=== PATIENT | male | born 1950 | race Caucasian/White ===

== ENCOUNTER 2022-02-24 09:28 | Outpatient (CLI) | payer MEDICARE, SELFPAY ==
--- NOTE | ~2022-02-24 | XR_ITS ---
XR lumbar spine 2-3V DATE: 02/24/2022 09:55 INDICATION: Low back pain. No injury. TECHNIQUE: Standing AP and standing lateral extension and flexion views COMPARISON: None FINDINGS: There is approximately 35 degrees rotatory levoscoliosis of the lower thoracic and lumbar s pine measured from L1 to L4. There is severe degenerative disc disease throughout the lumbar and lumbosacral spine. No fracture or bone destruction is evident. The lumbar pedicles and included lower thoracic pedicles appear intact. There is degenerative change at the apophyseal joints with associated grade 1 anterolisthesis at L4-5 . No instability on flexion or extension is noted. The sacroiliac joints are intact. IMPRESSION: 35 degrees rotatory levoscoliosis Severe degenerative disc disease throughout the lumbar and lumbosacral spine Grade 1 anterolisthesis at L4-5 due to degenerative change at the apophyseal joints Reviewed, dictated and finalized at location B. IMPRESSION: 35 degrees rotatory levoscoliosis Severe degenerative disc disease throughout the lumbar and lumbosacral spine Grade 1 anterolisthesis at L4-5 due to degenerative change at the apophyseal rosie ints
== END 2022-02-24 09:29 | disposition home or self-care (01) ==
PROVIDERS: PCP Internal Medicine; Visit Provider Internal Medicine
DX: M54.50 Low back pain, unspecified (principal); M48.00 Spinal stenosis, site unspecified; G89.29 Other chronic pain; M51.36 Other intervertebral disc degeneration, lumbar region
CPT/HCPCS: 72100

== ENCOUNTER 2022-03-21 09:30 | Outpatient (CLI) | payer MEDICARE, SELFPAY ==
[2022-03-21 10:19] LABS: Basophils Absolute Auto 0.1 K/mm3 (0.0-0.1); Basophils Percent Auto 1.3 % (0.2-1.2); Eosinophils Absolute Auto 0.2 K/mm3 (0-0.3); Eosinophils Percent Auto 3.8 % (0-4.4); Hematocrit 51.6 % (42.0-52.0); Hemoglobin 16.6 g/dL (14.0-18.0); Immature Granulocyte Absolute 0.01 K/mm3 (0.00-0.031); Immature Granulocyte Percent A 0.2 % (0-0.5); Lymphocytes Absolute Auto 1.27 K/mm3 (0.9-3.2); Mean Corpuscular HGB Conc 32.2 g/dl (32-36); Mean Corpuscular Hemoglobin 30.4 pg (26-34); Mean Corpuscular Volume 94.5 fl (80-100); Monocytes Absolute Auto 0.6 K/mm3 (0.1-0.6); Monocytes Percent Auto 9.1 % (2.6-8.5); Neutrophils Absolute Auto 4.2 K/mm3 (1.3-6.7); Neutrophils Percent Auto 65.6 % (45.5-73.1); Platelet Count Result 202 k/mm3 (150-375); Red Blood Count 5.46 M/mm3 (4.6-6.20); Red Cell Distribution Width 13.1 % (11.5-14.5); White Blood Count 6.4 K/mm3 (4.5-10.0)
[2022-03-21 10:31] LABS: Alanine Aminotransferase 19 U/L (6-50); Albumin Level 4.1 g/dL (3.5-5.1); Alkaline Phosphatase 73 U/L (38-126); Anion Gap 7 mmol/L (8-16); Aspartate Amino Transferase 33 U/L (17-59); Bilirubin,Total 0.8 mg/dL (0.2-1.3); Blood Urea Nitrogen 20 mg/dL (9-20); Calcium 9.1 mg/dL (8.4-10.2); Carbon Dioxide 27 mmol/L (22-30); Chloride 103 mmol/L (98-107); Cholesterol 156 mg/dL (0-200); Estimated Glomerular Filt Rate > 60; Glucose 82 mg/dL (65-110); HDL Direct 62 mg/dL; Potassium 4.9 mmol/L (3.4-5.0); Sodium 137 mmol/L (137-145); Triglycerides 69 mg/dL (<150)
[2022-03-21 10:43] LABS: LDL Cholesterol Direct 63 mg/dL
[2022-03-21 10:48] LABS: Appearance Urine Clear (Clear); Bilirubin Urine Negative (Negative); Blood Urine Negative (Negative); Color Urine Yellow (Yellow); Glucose Urine UA Negative (Negative); Ketones Urine Negative (Negative); Leukocyte Esterase Ur Trace LEU/UL (Negative); Nitrate Urine Negative (Negative); Protein Urine Negative (Negative); Urobilinogen Urine 0.2 mg/dL (<2.0)
[2022-03-21 11:03] LABS: Prostate Specific Antigen 1.5 ng/mL (< OR = 4.0)
[2022-03-21 11:08] LABS: Vitamin D 25 Hydroxy 63.3 ng/mL
[2022-03-21 11:31] LABS: Hemoglobin A1C 5.3 % (<5.7)
[2022-03-21 11:35] LABS: Add Urine Microscopic? YES
[2022-03-21 11:36] LABS: Bacteria Urine Trace /hpf; Mucus Urine Few /lpf; Squamous Epithelial Cell Urine Rare /hpf (Few)
[2022-03-21 11:43] LABS: Folic Acid > 20.0 ng/mL (2.76->20)
== END 2022-03-21 09:31 | disposition home or self-care (01) ==
PROVIDERS: PCP Internal Medicine; Visit Provider Internal Medicine
DX: Z79.899 Other long term (current) drug therapy (principal); E55.9 Vitamin D deficiency, unspecified; Z13.29 Encounter for screening for other suspected endocrine disorder; E78.2 Mixed hyperlipidemia; Z13.1 Encounter for screening for diabetes mellitus; E53.8 Deficiency of other specified B group vitamins; Z12.5 Encounter for screening for malignant neoplasm of prostate
CPT/HCPCS: 36415; 80053; 80061; 81001; 82306; 82607; 82746; 83036; 84153; 84439; 84443; 85025; G0103

== ENCOUNTER 2022-03-31 00:46 | Day surgery (SDC) | payer MEDICARE, SELFPAY ==
[2022-03-16 14:15] VITALS: BMI 24.3
--- NOTE | 2022-03-30 09:53 | WPDANESEPPF ---
Anes - Initial Pre Proc Eval Procedure: Operation Date: 03/31/22 10:00 Proposed Procedures p Screening Colonoscopy - Twan Garcia MD Date/Time: 03/30/22 09:53 Surgeon: Twan Garcia MD Pre Op Diagnosis: neoplasm screening Patient Data Age: 71 Gender: M Height: 1.78 m Weight: 77 kg Allergies Allergy/AdvReac Type Severity Reaction Status Date / Time Sulfa (Sulfonamide Allergy Intermediate Rash Verified 03/31/22 08:45 Antibiotics) [id number] Reductase AdvReac Intermediate Muscle Pain Verified 03/31/22 08:45 Inhibitor apple skin AdvReac Mild Other Uncoded 03/31/22 08:45 Home Medications Medication Instructions Recorded Confirmed Type acetaminophen 500 mg capsule 500 mg PO Q6H PRN Pain 02/13/22 03/16/22 History albuterol sulfate 90 mcg/actuation 1 puff inhalation Q4H PRN asthma 02/13/22 03/16/22 History aerosol inhaler (ProAir HFA) cholecalciferol (vitamin D3) 25 25 mcg PO DAILY 02/13/22 03/16/22 History mcg (1,000 unit) capsule diclofenac sodium 1 % topical gel 4 g topical QID 02/13/22 03/16/22 History (Arthritis Pain (diclofenac)) diphenhydramine 25 1 tablet PO QHS PRN Pain 02/13/22 03/16/22 History mg-acetaminophen 500 mg tablet (Tylenol PM Extra Strength) duloxetine 30 mg capsule,delayed 30 mg PO DAILY 02/13/22 03/16/22 History release evolocumab 140 mg/mL subcutaneous 140 mg subcut ONCE 02/13/22 03/16/22 History pen injector (Repatha SureClick) fexofenadine 180 mg tablet 180 mg PO DAILY 02/13/22 03/16/22 History folic acid 400 mcg tablet 0.4 mg PO DAILY 02/13/22 03/16/22 History ibuprofen 200 mg tablet 200 mg PO Q6H PRN Pain 02/13/22 03/16/22 History lactobacillus combination no.9 4 4,000 mmu cells PO DAILY 02/13/22 03/16/22 History billion cell capsule (Adult 50 Plus Probiotic) lisinopril 10 mg tablet 10 mg PO DAILY 02/13/22 03/16/22 History mecobalamin (vitamin B12) 1,000 1,000 mcg PO DAILY 02/13/22 03/16/22 History mcg chewable tablet melatonin 3 mg capsule 3 mg PO QHS 02/13/22 03/16/22 History omeprazole 20 mg capsule,delayed 20 mg PO DAILY 02/13/22 03/16/22 History release psyllium husk 3.4 gram/5.4 gram 1 tsp PO ONCE 02/13/22 03/16/22 History oral powder (Metamucil) sildenafil (pulm.hypertension) 20 20 mg PO TID 02/13/22 03/16/22 History mg tablet tolterodine 2 mg capsule,extended 2 mg PO DAILY 02/13/22 03/16/22 History release 24 hr vitamin B complex 1 tablet PO DAILY 02/13/22 03/16/22 History peg 3350-electrolytes 236 240 ml PO Q10M #4,000 mL 02/17/22 Rx gram-22.74 gram-6.74 gram-5.86 gram solution (Golytely) dicyclomine 10 mg capsule 10 mg PO DAILY PRN cramping 03/16/22 03/16/22 History Patient hx anesthesia problems: none Family hx anesthesia problems: none Results Review: All pre-operative results and documents have been reviewed as part of the pre-operative evaluation. [facility] Past Medical History Medical History (Updated 02/13/22 @ 11:45 by [employer] [facility] [address]) Benign essential hypertension BMI 24.0-24.9, adult Chronic low back pain CKD (chronic kidney disease) Colon cancer screening Encounter to establish care Erectile dysfunction History of left foot drop Hx of Clostridium difficile infection Hx of renal calculi Inclusion cyst Macular pucker, left eye Mixed hyperlipidemia On usp drug therapy Pre-diabetes Prostate cancer screening Statin intolerance Stenosis of intervertebral foramen Transient global amnesia Surgical History Surgical History (Updated 02/13/22 @ 11:04 by Aurora [employer] [facility]) History of carpal tunnel release History of tonsillectomy and adenoidectomy Hx of cardiac cath Hx of cataract surgery Social History Social History Smoking status: Never smoker Alcohol intake: current Drinks per week: 3 Substance use type: does not use Living arrangements: with family Spiritual care concerns: No Anes - Eval Final PreProcedure Day of Procedure
--- NOTE | 2022-03-31 06:56 | PM.HPGS ---
History of Present Illness History of Present Illness Consent: Risks, benefits, and alternatives have been discussed and questions answered. Patient agrees to proceed with procedure. Chief complaint: neoplasm screening Narrative: Bubba Agudelo is a 71 year old male Referred for colon cancer screening. Review of Systems Review of Systems: All systems reviewed & are unremarkable except as noted in HPI and below PMFSH Past Medical History Medical History Benign essential hypertension BMI 24.0-24.9, adult Chronic low back pain CKD (chronic kidney disease) Colon cancer screening Encounter to establish care Erectile dysfunction History of left foot drop Hx of Clostridium difficile infection Hx of renal calculi Inclusion cyst Macular pucker, left eye Mixed hyperlipidemia On pen[facility]iary drug therapy Pre-diabetes Prostate cancer screening Statin intolerance Stenosis of intervertebral foramen Transient global amnesia Surgical History Surgical History History of carpal tunnel release History of tonsillectomy and adenoidectomy Hx of cardiac cath Hx of cataract surgery Social History Social History Smoking status: Never smoker Alcohol intake: current Drinks per week: 3 Substance use type: does not use Living arrangements: with family Spiritual care concerns: No Meds Home Medications and Allergies Home Medications Medication Instructions Recorded Confirmed Type acetaminophen 500 mg capsule 500 mg PO Q6H PRN Pain 02/13/22 03/16/22 History albuterol sulfate 90 mcg/actuation 1 puff inhalation Q4H PRN asthma 02/13/22 03/16/22 History aerosol inhaler (ProAir HFA) cholecalciferol (vitamin D3) 25 25 mcg PO DAILY 02/13/22 03/16/22 History mcg (1,000 unit) capsule diclofenac sodium 1 % topical gel 4 g topical QID 02/13/22 03/16/22 History (Arthritis Pain (diclofenac)) diphenhydramine 25 1 tablet PO QHS PRN Pain 02/13/22 03/16/22 History mg-acetaminophen 500 mg tablet (Tylenol PM Extra Strength) duloxetine 30 mg capsule,delayed 30 mg PO DAILY 02/13/22 03/16/22 History release evolocumab 140 mg/mL subcutaneous 140 mg subcut ONCE 02/13/22 03/16/22 History pen injector (Olive David) fexofenadine 180 mg tablet 180 mg PO DAILY 02/13/22 03/16/22 History folic acid 400 mcg tablet 0.4 mg PO DAILY 02/13/22 03/16/22 History ibuprofen 200 mg tablet 200 mg PO Q6H PRN Pain 02/13/22 03/16/22 History lactobacillus combination no.9 4 4,000 mmu cells PO DAILY 02/13/22 03/16/22 History billion cell capsule (Adult 50 Plus Probiotic) lisinopril 10 mg tablet 10 mg PO DAILY 02/13/22 03/16/22 History mecobalamin (vitamin B12) 1,000 1,000 mcg PO DAILY 02/13/22 03/16/22 History mcg chewable tablet melatonin 3 mg capsule 3 mg PO QHS 02/13/22 03/16/22 History omeprazole 20 mg capsule,delayed 20 mg PO DAILY 02/13/22 03/16/22 History release psyllium husk 3.4 gram/5.4 gram 1 tsp PO ONCE 02/13/22 03/16/22 History oral powder (Metamucil) sildenafil (pulm.hypertension) 20 20 mg PO TID 02/13/22 03/16/22 History mg tablet tolterodine 2 mg capsule,extended 2 mg PO DAILY 02/13/22 03/16/22 History release 24 hr vitamin B complex 1 tablet PO DAILY 02/13/22 03/16/22 History peg 3350-electrolytes 236 240 ml PO Q10M #4,000 mL 02/17/22 Rx gram-22.74 gram-6.74 gram-5.86 gram solution (Golytely) dicyclomine 10 mg capsule 10 mg PO DAILY PRN cramping 03/16/22 03/16/22 History Allergies Allergy/AdvReac Type Severity Reaction Status Date / Time Sulfa (Sulfonamide Allergy Intermediate Rash Verified 03/31/22 08:45 Antibiotics) [id number] Reductase AdvReac Intermediate Muscle Pain Verified 03/31/22 08:45 Inhibitor apple skin AdvReac Mild Other Uncoded 03/31/22 08:45 Exam Const: General: alert Orientation
[2022-03-31 08:47] VITALS: BP 113/77; PULSE 77; RESP 20; TEMP 36.6; O2SAT 99
[2022-03-31] MEDS: LACTATED RINGERS 1,000 ML 150 ML IV CONT (08:59)
[2022-03-31] MEDS: SIMETHICONE ORAL SUSPENSION 20 MG/0.3 ML 30 ML BOTTLE 0.6 ML IRRIGATION (10:10)
[2022-03-31 10:19] VITALS: BP 101/60; PULSE 60; RESP 14; O2SAT 100
[2022-03-31 10:29] VITALS: BP 108/60; PULSE 60; RESP 22; O2SAT 100
[2022-03-31 10:39] VITALS: BP 117/69; PULSE 60; RESP 22; O2SAT 99
== END 2022-03-31 10:49 | disposition home or self-care (01) ==
PROVIDERS: PCP Internal Medicine; Visit Provider Internal Medicine Gastroenterology
PROC: 0DJD8ZZ Inspection of Lower Intestinal Tract, Via Natural or Artificial Opening Endoscopic (ICD-10-PCS; CPT 45378; principal; 2022-03-31 10:00)
DX: Z12.11 Encounter for screening for malignant neoplasm of colon (principal); R73.03 Prediabetes; M48.00 Spinal stenosis, site unspecified; I12.9 Hypertensive chronic kidney disease with stage 1 through stage 4 chronic kidney disease, or unspecified chronic kidney disease; N18.9 Chronic kidney disease, unspecified; Z79.51 Long term (current) use of inhaled steroids
CPT/HCPCS: G0121; J2704; J7120

== ENCOUNTER 2022-04-11 09:10 | Outpatient (CLI) | payer MEDICARE, SELFPAY ==
--- NOTE | ~2022-04-11 | XR_ITS ---
EXAMINATION: XR knee RT 3V DATE: 04/11/2022 09:40 INDICATION: Right knee pain TECHNIQUE: Three views of the right knee were obtained. COMPARISON: None. FINDINGS: Alignment is normal. No fracture or osteochondral lesion. There is mild to moderate tricomp artmental osteoarthritis. No joint effusion/synovitis. Calcified atherosclerosis is noted. IMPRESSION: 1. Osteoarthritis without acute osseous abnormality. Reviewed, dictated and finalized at location A.
--- NOTE | ~2022-04-11 | XR_ITS ---
XR knee LT 3V 04/11/2022 09:40 Indication: Knee pain Procedure: 3 views left knee Comparison: No prior studies for comparison. Findings: There is moderate tricompartment osteoarthritis. No fracture or traumatic malalignment. The re is chondrocalcinosis. No significant joint effusion. There are vascular calcifications. Impression: 1: Moderate tricompartment osteoarthritis of the left knee. Reviewed, dictated and finalized at location B. Impression: 1: Moderate tricompartment osteoarthritis of the left knee.
== END 2022-04-11 09:11 | disposition home or self-care (01) ==
PROVIDERS: PCP Internal Medicine; Visit Provider Internal Medicine
DX: M17.0 Bilateral primary osteoarthritis of knee (principal)
CPT/HCPCS: 73562

== ENCOUNTER 2022-06-13 07:00 | Outpatient (NON) | payer MEDICARE, SELFPAY | END 2022-06-13 07:01 | disposition home or self-care (01) | LOC: ANHLAB 06-14 11:39 | PROVIDERS: PCP Internal Medicine; Visit Provider Nurse Practitioner | DX: L72.0 Epidermal cyst (principal) | CPT/HCPCS: 88304 ==

== ENCOUNTER → 2023-05-11 10:13 | Outpatient (CLI) | payer MEDICARE, SELFPAY ==
--- NOTE | ~2023-05-11 | MR_ITS ---
EXAMINATION: MR lumbar spine wo con DATE: 05/11/2023 10:42 INDICATION: Low back pain. Radiculopathy. TECHNIQUE: Magnetic resonance imaging (MRI) of the lumbar spine was performed without intravenous con trast. Sequences included sagittal T2-weighted FSE, sagittal T2-weighted FS FSE, sagittal T1-weighted FSE, and axial T2-weighted FSE. COMPARISON: Lumbar spine radiographs 02/24/2022 FINDINGS: There is 32 degrees levoscoliosis of lumbar spine. There is 3 mm anterolisthesis of L4 on L 5. The body heights are normal. There is moderately decreased disc height at T12-L1, severely decreas ed disc height at L1-L2, moderately decreased disc height at L2-L3, and severely decreased disc heigh t at L3-L4, L4-L5, and L5-S1. The distal spinal cord signal intensity is normal. The conus medullaris is at L1-L2. The following disc levels are specifically discussed: T12-L1: The disc is bulging and has an annular fissure. There is mild right facet joint osteoarthriti s. There is mild bilateral neural foraminal stenosis. There is mild central canal stenosis. L1-L2: The disc is bulging and has an annular fissure. There is mild right facet joint osteoarthritis . There is moderate right and mild left neural foraminal stenosis. There is mild central canal stenos is. L2-L3: The disc is bulging and has an annular fissure. There is mild bilateral facet joint osteoarthr itis. There is mild bilateral neural foraminal stenosis. There is mild central canal stenosis. L3-L4: The disc is bulging and has an annular fissure. There is severe bilateral facet joint osteoart hritis. There is moderate right and mild left neural foraminal stenosis. There is mild central canal stenosis. L4-L5: The disc is bulging and has an annular fissure. There is severe bilateral facet joint osteoart hritis. There is mild right and moderate left neural foraminal stenosis. There is mild central canal stenosis. L5-S1: The disc is bulging and has an annular fissure. There is severe bilateral facet joint osteoart hritis. There is mild bilateral neural foraminal stenosis. There is mild central canal stenosis. IMPRESSION: 1. Severe lumbar spondylosis. 2. Lumbar levoscoliosis. Reviewed, dictated and finalized at location E.
== END ==
PROVIDERS: PCP Pain Medicine Pain Medicine; Visit Provider Nurse Practitioner Acute Care
DX: M51.16 Intervertebral disc disorders with radiculopathy, lumbar region (principal); M43.06 Spondylolysis, lumbar region; M41.86 Other forms of scoliosis, lumbar region
CPT/HCPCS: 72148

== ENCOUNTER 2024-01-03 13:02 | Outpatient (CLI) | payer MEDICARE, SELFPAY ==
--- NOTE | ~2024-01-03 | XR_ITS ---
EXAMINATION: XR knee RT 3V DATE: 01/03/2024 13:20 INDICATION: Osteoarthritis at the right knee TECHNIQUE: Standing AP, sunrise, and flexed lateral views of the right knee were obtained COMPARISON: 04/11/2022 FINDINGS: Alignment is normal. No fracture. Chondrocalcinosis at the medial and lateral compartments of the ri ght knee. Tricompartmental osteoarthritis at the right knee with small marginal osteophytes in all 3 compartments. There is mild joint space narrowing the medial compartment and mild to moderate joint s pace narrowing in the patellofemoral compartment bladder better appreciated on the lateral projection . Small right knee joint effusion. Soft tissues are unremarkable. IMPRESSION: 1. Chondrocalcinosis and tricompartmental osteoarthritis the right knee, mild to moderate severity at the patellofemoral compartment and mild in the medial and lateral compartments. Reviewed, dictated and finalized at location A. IMPRESSION: 1. Chondrocalcinosis and tricompartmental osteoarthritis the right knee, mild t o moderate severity at the patellofemoral compartment and mild in the medial an d lateral compartments.
--- NOTE | ~2024-01-03 | XR_ITS ---
XR knee LT 3V 01/03/2024 13:20 Indication: Left knee pain Procedure: 3 views left knee Comparison: 04/11/2022 Findings: Moderate osteoarthritis of the left knee. Chondrocalcinosis. No fracture or traumatic malal ignment. No joint effusion. No foreign bodies. Impression: 1: Moderate osteoarthritis of the left knee with chondrocalcinosis. Reviewed, dictated and finalized at location B. Impression: 1: Moderate osteoarthritis of the left knee with chondrocalcinosis.
== END 2024-01-03 13:03 ==
PROVIDERS: Visit Provider Nurse Practitioner Family
DX: M17.0 Bilateral primary osteoarthritis of knee (principal)
CPT/HCPCS: 73562

== ENCOUNTER 2024-08-07 03:33 | Emergency (ER) | payer MEDICARE, SELFPAY ==
--- NOTE | ~2024-08-07 | CT_ITS ---
CT of the Abdomen and Pelvis: Indication: Abdominal pain Technique: 2.5 mm axial scans were obtained through the abdomen and pelvis following intravenous adm inistration of 100 cc of Omnipaque 350. Dose reduction technique was used on this scan by utilizing a utomated exposure control and iterative reconstruction technique. The dose-length product (DLP) was 4 00.83 mGy-cm. Findings: Scans through the lung bases are unremarkable. The liver, spleen, pancreas, gallbladder, adrenals and kidneys are within normal limits. There are mi ld atherosclerotic calcifications of the aorta. No lymphadenopathy. No bowel obstruction or bowel wall thickening. There is no evidence to suggest acute appendicitis. Images through the pelvis were performed. Urinary bladder unremarkable. No pelvic mass seen. Prostate gland mildly enlarged. No ascites. Impression: No significant abnormalities seen. Reviewed, dictated and finalized at [facility]. 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
[2024-08-07 03:39] VITALS: BP 143/98; PULSE 60; RESP 11; TEMP 36.4; O2SAT 100
[2024-08-07 03:55] LABS: Basophils Absolute Auto 0.1 K/mm3 (0.0-0.1); Basophils Percent Auto 1.4 % (0.2-1.2); Eosinophils Absolute Auto 0.3 K/mm3 (0-0.3); Eosinophils Percent Auto 5.3 % (0-4.4); Hematocrit 45.8 % (42.0-52.0); Hemoglobin 15.3 g/dL (14.0-18.0); Immature Granulocyte Absolute 0.02 K/mm3 (0.00-0.031); Immature Granulocyte Percent A 0.3 % (0-0.5); Lymphocytes Absolute Auto 1.86 K/mm3 (0.9-3.2); Lymphocytes Percent Auto 29.6 % (18.3-44.2); Mean Corpuscular HGB Conc 33.4 g/dl (32-36); Mean Corpuscular Hemoglobin 30.6 pg (26-34); Mean Corpuscular Volume 91.6 fl (80-100); Mean Platelet Volume 8.7 fl (7.4-10.4); Monocytes Absolute Auto 0.7 K/mm3 (0.1-0.6); Monocytes Percent Auto 10.7 % (2.6-8.5); Neutrophils Absolute Auto 3.3 K/mm3 (1.3-6.7); Neutrophils Percent Auto 52.7 % (45.5-73.1); Platelet Count Result 218 k/mm3 (150-375); Red Cell Distribution Width 12.3 % (11.5-14.5); White Blood Count 6.3 K/mm3 (4.5-10.0)
[2024-08-07 04:05] LABS: Add Urine Microscopic? NO; Appearance Urine Clear (Clear); Bilirubin Urine Negative (Negative); Blood Urine Negative (Negative); Color Urine Yellow (Yellow); Glucose Urine UA Negative (Negative); Ketones Urine Negative (Negative); Leukocyte Esterase Ur Negative LEU/UL (Negative); Nitrate Urine Negative (Negative); Protein Urine Negative (Negative); Specific Grav Ur 1.012 (1.001-1.035); Urobilinogen Urine 0.2 mg/dL (<2.0); pH Urine 7.5 (5.0-9.0)
[2024-08-07 04:08] LABS: Alanine Aminotransferase 44 U/L (6-50); Albumin Level 4.1 g/dL (3.5-5.1); Alkaline Phosphatase 85 U/L (38-126); Anion Gap 6 mmol/L (4-12); Aspartate Amino Transferase 41 U/L (17-59); Bilirubin,Total 0.8 mg/dL (0.2-1.3); Blood Urea Nitrogen 20 mg/dL (9-20); Calcium 9.1 mg/dL (8.4-10.2); Carbon Dioxide 29 mmol/L (22-30); Chloride 104 mmol/L (98-107); Estimated CRCL calculation 56 ml/min; Estimated Glomerular Filt Rate > 60; Glucose 96 mg/dL (65-110); Lipase 78 U/L (23-300); Magnesium 2.2 mg/dL (1.6-2.3); Potassium 3.8 mmol/L (3.4-5.0); Sodium 139 mmol/L (137-145)
[2024-08-07 04:32] LABS: Influenza A QL RT-PCR Negative (Negative); Influenza B QL RT-PCR Negative (Negative); RSV RNA, RT-PCR Negative (Negative); SARS-CoV-2 RNA PCR Negative (Negative)
--- NOTE | 2024-08-07 04:38 | ED.ABDPAIN ---
HPI - Abdominal Pain General Chief Complaint: Abdominal Pain Stated Complaint: abdominal pain Time Seen by Provider: 08/07/24 03:36 History of Present Illness HPI narrative: Patient is a 74-year-old male who presents to the emergency department this morning complaining of abdominal pain that has been ongoing for the past 3 months. Patient states that the pain is intermittent, sometimes worse than others but states that overnight he felt as though it became more sharp so he finally decided to come to the emergency department for further evaluation. Patient admits that he does have a history of IBS and has been following up with the primary care physician out of [facility]. Patient states that he had a colonoscopy done 2 years ago which was normal. States that the pain is cramping in nature. States that he usually has a bowel movement multiple times a day secondary to his history of IBS. Denies any nausea or vomiting. Denies any chest pain or shortness of breath. No additional symptoms or concerns at this time. Related Data Home Medications ?Medication ?Instructions ?Recorded ?Confirmed ?Last Taken ?Type acetaminophen 500 mg capsule 500 mg PO Q6H PRN Pain 02/13/22 04/26/23 Unknown History albuterol sulfate 90 mcg/actuation 1 puff inhalation Q4H PRN asthma 02/13/22 04/26/23 Unknown History aerosol inhaler (ProAir HFA) cholecalciferol (vitamin D3) 25 25 mcg PO DAILY 02/13/22 04/26/23 Unknown History mcg (1,000 unit) capsule diclofenac sodium 1 % topical gel 4 g topical QID 02/13/22 04/26/23 Unknown History (Arthritis Pain (diclofenac)) diphenhydramine 25 1 tablet PO QHS PRN Pain 02/13/22 04/26/23 Unknown History mg-acetaminophen 500 mg tablet (Tylenol PM Extra Strength) folic acid 400 mcg tablet 0.4 mg PO DAILY 02/13/22 04/26/23 Unknown History ibuprofen 200 mg tablet 200 mg PO Q6H PRN Pain 02/13/22 04/26/23 Unknown History lactobacillus combination no.9 4 4,000 mmu cells PO DAILY 02/13/22 04/26/23 Unknown History billion cell capsule (Adult 50 Plus Probiotic) mecobalamin (vitamin B12) 1,000 1,000 mcg PO DAILY 02/13/22 04/26/23 Unknown History mcg chewable tablet psyllium husk 3.4 gram/5.4 gram 1 tsp PO ONCE 02/13/22 04/26/23 Unknown History oral powder (Metamucil) vitamin B complex 1 tablet PO DAILY 02/13/22 04/26/23 Unknown History fexofenadine 180 mg tablet 180 mg PO DAILY PRN 04/07/22 04/26/23 Unknown History melatonin 3 mg capsule 3 mg PO QHS PRN 08/31/22 04/26/23 Unknown History Allergies Allergy/AdvReac Type Severity Reaction Status Date / Time Sulfa (Sulfonamide Allergy Intermediate Rash Verified 04/24/23 13:37 Antibiotics) [id number] Reductase AdvReac Intermediate Muscle Pain Verified 04/24/23 13:37 Inhibitor apple skin AdvReac Mild Other Uncoded 04/24/23 13:37 Review of Systems Review of Systems: All systems are reviewed and are negative unless stated otherwise in the HPI. [facility] Past Medical History Medical History Hearing loss IBS (irritable bowel syndrome) Encounter for routine adult health examination without abnormal findings Encounter for Medicare annual wellness exam BMI 25.0-25.9,adult Pre-diabetes History of left foot drop Macular pucker, left eye Inclusion cyst Benign essential hypertension Prostate cancer screening Colon cancer screening Hx of Clostridium difficile infection Transient global amnesia Erectile dysfunction CKD (chronic kidney disease) Statin intolerance Mixed hyperlipidemia Hx of renal calculi Chronic low back pain Stenosis of intervertebral foramen 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 Colindres Hx of cataract surgery Hx of cardiac cath History of tonsillectomy and adenoidectomy History of carpal tunnel release Family History Family History Other Depression Diabetes mellitus HLD (hyperlipidemia) Heart disease Hypertension Rheumatoid arthritis Social History Social History Smoking status: Never smoker Alcohol intake: current Drinks per week: 3 Substance use type: does not use Current Housing: Decline to Answer Concerned About Future Housing: Decline to Answer Difficulty Paying Gas/Electric Bills: Decline to Answer Difficulty Paying for Meds: Decline to Answer Currently Unemployed: Decline to Answer Education: Decline to Answer Difficulty w/ Childcare or Family Care: Decline to Answer Living arrangements: with family Occupation/Education: retired Gender identity (if verbalized by the patient): Male Spiritual care concerns: No Exam Narrative: General: Alert, awake, afebrile, in no acute distress. HEENT: PERRL, no rhinorrhea, no post nasal drip, oropharynx clear. Neck: Trachea midline, no JVD, no lymphadenopathy. Cardiovascular: Regular rate and rhythm, no murmurs, rubs or gallops, no peripheral edema. Respiratory: Clear to auscultation bilaterally, no tachypnea, no wheezing, no rhonchi, no rubs, no respiratory distress. Abdomen: Soft, nontender, nondistended, no rebound, no guarding, no peritoneal signs. Musculoskeletal: No joint swelling or deformity, normal muscle tone. Skin: No rashes or petechia, no signs of infection. Psychiatric: Alert and oriented, normal behavior and judgment for situation. Neurological: Alert and oriented to person, place, and time. Follows all commands. No focal deficits, speech is clear and fluent. Course Vital Signs Vital signs: Vital Signs Temperature 97.6 F 08/07/24 03:39 Pulse Rate 60 08/07/24 03:39 Respiratory Rate 11 L 08/07/24 03:39 Blood Pressure 143/98 H 08/07/24 03:39 Pulse Oximetry 100 08/07/24 03:39 Oxygen Delivery Room Air 08/07/24 03:39 Temperature 97.6 F 08/07/24 03:39 Pulse Rate 88 08/07/24 05:33 Respiratory Rate 18 08/07/24 05:33 Blood Pressure 118/76 08/07/24 05:33 Pulse Oximetry 100 08/07/24 05:33 Oxygen Delivery Room Air 08/07/24 03:39 MDM - Abdominal Pain MDM Narrative Medical decision making narrative: The patient was evaluated by myself in the emergency department. History is obtained from patient who is an independent historian and physical exam was performed. External medical records were reviewed at this time. IV was established and pertinent tests were ordered. Laboratory results obtained revealing no acute process. Urinalysis unremarkable. Imaging studies obtained included CT abdomen and pelvis with IV contrast which was independently interpreted by me revealing no acute process. Patient was informed of these findings at bedside and that he will need to follow-up with GI for additional workup and patient is agreeable with this plan. Differential diagnosis considerations include IBS, gastroenteritis, diverticulitis, pancreatitis, appendicitis. Comorbidities impacting this visit include history of IBS. I have evaluated and discussed social determinants of health with the patient that could potentially impact subsequent diagnosis and treatment plans. On repeat assessment of the patient, reevaluation revealed that the patient is doing well and is in no acute distress. Patient symptoms have arrived to our emergency department. Repeat vital signs were all reviewed and noted to be stable. Differential diagnosis and treatment plan were discussed with the patient at bedside. Patient agrees with discussion and after shared medical decision making agrees with discharge. All questions were answered to the patient's satisfaction. Patient will follow up with GI in 3-5 days. Patient was provided with strict return precautions and instructed to return to the emergency department if any new or worsening symptoms develop. The patient was discharged in stable condition. Lab Data 08/07/24 03:48 08/07/24 03:48 Labs: Lab Results 08/07/24 08/07/24 08/07/24 Range/Units 03:48 03:48 03:58 WBC 6.3 (4.5-10.0) K/mm3 RBC 5.00 (4.6-6.20) M/mm3 Hgb 15.3 (14.0-18.0) g/dL Hct 45.8 (42.0-52.0) % MCV 91.6 (80-100) fl MCH 30.6 (26-34) pg MCHC 33.4 (32-36) g/dl RDW 12.3 (11.5-14.5) % Plt Count 218 (150-375) k/mm3 MPV 8.7 (7.4-10.4) fl Immature Gran % (Auto) 0.3 (0-0.5) % Neut % (Auto) 52.7 (45.5-73.1) % Lymph % (Auto) 29.6 (18.3-44.2) % Ellis % (Auto) 10.7 H (2.6-8.5) % Eos % (Auto) 5.3 H (0-4.4) % Baso % (Auto) 1.4 H (0.2-1.2) % Lymph # (Auto) 1.86 (0.9-3.2) K/mm3 Ellis # (Auto) 0.7 H (0.1-0.6) K/mm3 Eos # (Auto) 0.3 (0-0.3) K/mm3 Baso # (Auto) 0.1 (0.0-0.1) K/mm3 Abs Immat Gran (auto) 0.02 (0.00-0.031) K/mm3 Absolute Neuts (auto) 3.3 (1.3-6.7) K/mm3 Absolute Nucleated RBC 0.000 (0.0-0.012) K/mm3 Nucleated RBC % 0.0 (0.0-0.2) % Sodium 139 (137-145) mmol/L Potassium 3.8 (3.4-5.0) mmol/L Chloride 104 (98-107) mmol/L Carbon Dioxide 29 (22-30) mmol/L Anion Gap 6 (4-12) mmol/L BUN 20 (9-20) mg/dL Creatinine 1.05 (0.7-1.3) mg/dL Estim Creat Clear Calc 56 ml/min Estimated GFR > 60 (59 - ) Glucose 96 (65-110) mg/dL Calcium 9.1 (8.4-10.2) mg/dL Magnesium 2.2 Cancelled (1.6-2.3) mg/dL Total Bilirubin 0.8 (0.2-1.3) mg/dL AST 41 (17-59) U/L ALT 44 (6-50) U/L Alkaline Phosphatase 85 (38-126) U/L Total Protein 7.0 (6.3-8.2) g/dL Albumin 4.1 (3.5-5.1) g/dL Lipase 78 (23-300) U/L Urine Color Yellow (Yellow) Urine Appearance Clear (Clear) Urine pH 7.5 (5.0-9.0) Ur Specific [place] 1.012 (1.001-1.035) Urine Protein Negative (Negative) mg/dL Urine Glucose (UA) Negative (Negative) mg/dL Urine Ketones Negative (Negative) mg/dL Ur Blood (Man) Negative (Negative) Urine Nitrate Negative (Negative) Urine Bilirubin Negative (Negative) Urine Urobilinogen 0.2 (<2.0) mg/dL Leukocyte Esterase Rfl Negative (Negative) PRISCILLA/UL Influenza A (RT-PCR) Negative (Negative) Influenza B (RT-PCR) Negative (Negative) RSV (RT-PCR) Negative (Negative) SARS-CoV-2 RNA (RT-PCR) Negative (Negative) Discharge Plan Discharge Clinical Impression: Abdominal pain, chronic, generalized Patient Disposition: Home, Self-Care Condition: Stable Instructions: Antibiotic Form, Abdominal Pain (ED) Additional Instructions: Please follow-up with your primary care physician within the next 3-5 days. You also provided with a GI referral instructed to call tomorrow to set up a follow-up appointment. Return to the ED if any new or worsening symptoms develop. Patient Language: Tamazight Prescriptions: No Action acetaminophen 500 mg capsule 500 mg PO Q6H PRN (Reason: Pain) diclofenac sodium [Arthritis Pain (diclofenac)] 1 % gel 4 g topical QID Rx Instructions: apply to single knee, ankle, foot; for foot includes sole/toes/top of foot folic acid 400 mcg tablet 0.4 mg PO DAILY Adult 50 Plus Probiotic 4 billion cell capsule 4,000 mmu cells PO DAILY Rx Instructions: administer with a meal ibuprofen 200 mg tablet 200 mg PO Q6H PRN (Reason: Pain) Metamucil 3.4 gram/5.4 gram powder 1 tsp PO ONCE Rx Instructions: mix into at least 4 oz water or juice before administering albuterol sulfate [ProAir HFA] 90 mcg/actuation HFA aerosol inhaler 1 puff inhalation Q4H PRN (Reason: asthma) diphenhydramine-acetaminophen [Tylenol PM Extra Strength] 25-500 mg tablet 1 tablet PO QHS PRN (Reason: Pain) mecobalamin (vitamin B12) 1,000 mcg tablet,chewable 1,000 mcg PO DAILY vitamin B complex Tablet 1 tablet PO DAILY cholecalciferol (vitamin D3) 25 mcg (1,000 unit) capsule 25 mcg PO DAILY fexofenadine 180 mg tablet 180 mg PO DAILY PRN melatonin 3 mg capsule 3 mg PO QHS PRN sildenafil (pulm.hypertension) 20 mg tablet 20 mg PO TID Qty: 90 1RF Rx Instructions: administer doses at least 4-6 hours apart Repatha SureClick 140 mg/mL pen injector 140 mg subcut ONCE Qty: 2 1RF dicyclomine 10 mg capsule 10 mg PO DAILY PRN (Reason: cramping) Qty: 90 1RF lisinopril 10 mg tablet See Rx Instructions .ROUTE .COMPLEX Qty: 30 0RF Dose Instruction: TAKE 1 TABLET DAILY (NEEDS APPOINTMENT BEFORE NEXT FILL) Rx Instructions: TAKE 1 TABLET DAILY (NEEDS APPOINTMENT BEFORE NEXT FILL) tolterodine 2 mg capsule,extended release 24hr See Rx Instructions .ROUTE .COMPLEX Qty: 90 0RF Dose Instruction: Take 1 capsule by mouth once daily Rx Instructions: Take 1 capsule by mouth once daily omeprazole 20 mg capsule,delayed release(DR/EC) See Rx Instructions .ROUTE .COMPLEX Qty: 90 1RF Dose Instruction: TAKE 1 CAPSULE DAILY Rx Instructions: TAKE 1 CAPSULE DAILY Follow-up/Referrals: PHYSICIAN NOT ON STAFF,NONSTAFF [Primary Care Provider] - Alex Daly MD [Physician] - 3 Days Time of Disposition: 05:20
[2024-08-07 05:33] VITALS: BP 118/76; PULSE 88; RESP 18; O2SAT 100
== END 2024-08-07 05:35 | disposition home or self-care (01) ==
PROVIDERS: Emergency Provider Emergency Medicine
DX: R10.84 Generalized abdominal pain (principal); G89.29 Other chronic pain; N18.9 Chronic kidney disease, unspecified; I12.9 Hypertensive chronic kidney disease with stage 1 through stage 4 chronic kidney disease, or unspecified chronic kidney disease; E78.5 Hyperlipidemia, unspecified; Z20.822 Contact with and (suspected) exposure to COVID-19
CPT/HCPCS: 36415; 74177; 80053; 81003; 83690; 83735; 85025; 87637; 99284; Q9967